=== PATIENT | male | born 1940 | race Caucasian/White ===

== ENCOUNTER 2018-09-27 13:44 | Emergency (ER) | payer MEDICARE ==
[~2018-09-27] VITALS: Ht 180.3 cm; Wt 72.6 kg
[2018-09-27] MEDS ORDERED: CLONIDINE HCL 0.1 MG TAB PO ONE (15:00)
[2018-09-27] MEDS ORDERED: ONDANSETRON HCL 4 MG ORAL DISINTEGRATING TAB PO ONE (15:30)
[2018-09-27] MEDS ORDERED: MAGNESIUM/ALUMINUM/SIMETHICONE 30 ML UDC PO ONE (15:30)
== END 2018-09-27 16:10 | disposition home or self-care (01) ==
LOC: ER 13:44
DX: R11.2 Nausea with vomiting, unspecified (principal); K21.9 Gastro-esophageal reflux disease without esophagitis
CPT/HCPCS: 99283; Q0162